=== PATIENT | female | born 1940 | race Hispanic/Latino ===

== ENCOUNTER 2019-10-01 15:58 | Emergency (ER) | payer OTHER, MEDICARE ==
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
[2019-10-01 17:34] LABS: Calcium 9.2 mg/dL (8.4-10.2)
[2019-10-01 17:37] LABS: Basophils # (Auto) 0.1 K/mm3 (0.0-0.1); Basophils % (Auto) 0.6 % (0.0-1.8); Eosinophils # (Auto) 0.2 K/mm3 (0.0-0.4); Eosinophils % (Auto) 1.8 % (0.0-4.3); Hemoglobin 12.7 gm/dl (10.1-14.3); Lymphocytes # (Auto) 1.8 K/mm3 (1.2-5.4); Lymphocytes % (Auto) 15.8 % (13.4-35.0); Mean Corpuscular HGB Conc 33 % (30-34); Mean Corpuscular Volume 89 fl (79-97); Monocytes # (Auto) 0.7 K/mm3 (0.0-0.8); Platelet Count 199 K/mm3 (140-440); Red Blood Count 4.28 M/mm3 (3.65-5.03)
[2019-10-01 17:57] LABS: INR 1.18 (0.87-1.13)
[2019-10-01 17:58] LABS: Partial Thromboplastin Time 30.4 Sec. (24.2-36.6)
[2019-10-01] MEDS ORDERED: SODIUM CHLORIDE 0.9% 250ML 250 ML IV ONE (18:34)
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
[2019-10-01] MEDS ORDERED: TETANUS,DIPH,PERTUSS(ACELL) VACCINE 0.5 ML SYRINGE IM ONE (19:28)
[2019-10-01] MEDS ORDERED: BACITRACIN ZINC OINT 28.4 GM TP STA (19:28)
[2019-10-01] MEDS ORDERED: MORPHINE 4 MG/1 ML INJ IV ONE (19:28)
[2019-10-01] MEDS ORDERED: ACETAMINOPHEN 500 MG TAB PO ONE (19:29)
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
[2019-10-01 23:42] VITALS: BP 158/82
== END 2019-10-01 22:10 | disposition home or self-care (01) ==
LOC: ED 15:58
DX: S80.12XA Contusion of left lower leg, initial encounter (principal); S20.312A Abrasion of left front wall of thorax, initial encounter; I10 Essential (primary) hypertension; E11.9 Type 2 diabetes mellitus without complications; K21.9 Gastro-esophageal reflux disease without esophagitis; Z79.899 Other long term (current) drug therapy; V49.49XA Driver injured in collision with other motor vehicles in traffic accident, initial encounter; Y93.89 Activity, other specified; Y92.410 Unspecified street and highway as the place of occurrence of the external cause; Y99.8 Other external cause status
CPT/HCPCS: 36415; 70450; 71275; 72170; 73590; 74177; 80053; 82550; 83735; 84484; 85025; 85610; 85730; 90471; 90715; 93005; 93010; 96374; 99285; J2270; J7050; Q9967